=== PATIENT | male | born 1990 | race Two or more races ===

== ENCOUNTER 2017-01-05 20:37 | Emergency (ER) | payer OTHER ==
[~2017-01-05] VITALS: Ht 175.3 cm; Wt 72.0 kg
[2017-01-06] MEDS ORDERED: SODIUM CHLORIDE 0.9% 1,000 ML IV ONE (01:27)
[2017-01-06 02:31] LABS: BASOPHILS % 0.7 % (0.0-2.0); EOSINOPHILS % 5.4 % (0.0-5.0); HEMATOCRIT. 43.5 % (42.0-52.0); HEMOGLOBIN. 14.6 g/dL (14.0-18.0); MEAN CORPUSCULAR HEMOGLOBIN 28.9 pg (28.0-32.0); MEAN CORPUSCULAR VOLUME 85.9 fL (80.0-94.0); MEAN PLATELET VOLUME 7.1 fl (7.4-10.4); MONOCYTES % 7.5 % (2.0-8.0); NEUTROPHILS % 62.4 % (40.0-76.0); PLATELET 283 x1000/uL (130-400); RED BLOOD CELL COUNT 5.07 mill/uL (4.7-6.1); RED CELL DISTRIBUTION WIDTH 14.4 % (11.6-14.6)
[2017-01-06 02:40] LABS: CARBON DIOXIDE 27 mEq/L (21-32); CHLORIDE 106 mEq/L (98-107); ETHANOL BLOOD < 10 mg/dL
[2017-01-06 02:52] VITALS: BP 119/88
== END 2017-01-06 04:27 | disposition left against medical advice (07) ==
LOC: ER 20:56
DX: R61 Generalized hyperhidrosis (principal); R25.1 Tremor, unspecified; F31.9 Bipolar disorder, unspecified
CPT/HCPCS: 36415; 80053; 85025; 99284; G0482; Z7610; J7030